=== PATIENT | male | born 1980 | race Hispanic/Latino ===

== ENCOUNTER 2017-07-05 11:33 | Emergency (ER) | payer MEDICARE, OTHER | END 2017-07-05 12:20 | disposition home or self-care (01) | LOC: EDH 11:33 | DX: S46.091A Other injury of muscle(s) and tendon(s) of the rotator cuff of right shoulder, initial encounter (principal); Z72.0 Tobacco use; W22.8XXA Striking against or struck by other objects, initial encounter; Y93.89 Activity, other specified; Y92.098 Other place in other non-institutional residence as the place of occurrence of the external cause; Y99.8 Other external cause status | CPT/HCPCS: 99281; 99282 ==

== ENCOUNTER 2020-03-25 14:22 | Emergency (ER) | payer OTHER ==
[2020-03-25 15:06] LABS: BASOPHILS % (AUTO) 0.2 % (0.0-5.0); HEMATOCRIT 48.1 % (42-54); LYMPHOCYTES % (AUTO) 25.3 % (21.0-51.0); MEAN CORPUSCULAR HEMOGLOBIN 31.8 pg (27.0-33.0); MEAN CORPUSCULAR HGB CONC 34.5 g/dL (32.0-36.0); MEAN CORPUSCULAR VOLUME 92.1 fL (79-99); MONOCYTES % (AUTO) 9.3 % (3.0-13.0); NEUTROPHILS % (AUTO) 63.9 % (40.0-77.0); PLATELET COUNT (AUTO) 178 K/uL (130-400); RED BLOOD CELL COUNT(AUTO) 5.22 MIL/uL (4.50-6.20); RED CELL DISTRIBUTION WIDTH 11.8 % (11.0-15.5); WHITE BLOOD COUNT (AUTO) 11.6 K/uL (4.8-10.8)
[2020-03-25 15:15] LABS: CREATININE 1.1 mg/dL (0.5-1.5); POTASSIUM 3.9 mmol/L (3.5-5.1)
[2020-03-25 15:17] LABS: INR 0.87 (0.85-1.15); PROTHROMBIN TIME 9.4 SEC (9.6-11.6)
[2020-03-25 15:20] LABS: ALBUMIN 3.8 g/dL (3.5-5.0); BILIRUBIN,TOTAL 0.2 mg/dL (0.2-1.0); CRP QUANTITATIVE 45.7 mg/L (0.00-9.0); TOTAL PROTEIN, SERUM 8.2 g/dL (6.0-8.3)
[2020-03-25] MEDS ORDERED: KETOROLAC TROMETHAMINE 30MG/ML ONE (15:27)
[2020-03-25] MEDS ORDERED: LIDOCAINE HCL 1% 20 ML VIAL ONE (15:27)
[2020-03-25 15:35] LABS: APPEARANCE,URINE CLEAR (CLEAR); BILIRUBIN,URINE NEGATIVE (NEGATIVE); COLOR,URINE YELLOW (YELLOW); GLUCOSE, URINE (UA) NEGATIVE (NEGATIVE); KETONES,URINE NEGATIVE (NEGATIVE); LEUKOCYTE ESTERASE ,URINE NEGATIVE (NEGATIVE); NITRATE,URINE NEGATIVE (NEGATIVE); OCCULT BLOOD,URINE NEGATIVE (NEGATIVE); PROTEIN,URINE TRACE mg/dL (NEGATIVE); UROBILINOGEN,URINE 0.2 mg/dL (0.2-1.0)
[2020-03-25 15:43] LABS: BACTERIA,URINE Rare /HPF (None Seen); MUCUS,URINE Few LPF (None Seen); SQUAMOUS EPITHELIAL CELL,UR Rare /HPF (0-2); WBC,URINE 0-1 /HPF (0-1)
[2020-03-25 16:09] LABS: ERYTHROCYTE SEDIMENTATION RATE 17 MM/HR (0-15)
[2020-03-25] MEDS ORDERED: CLINDAMYCIN 600 MG/D5% WATER 50 ML IV ONE (16:23)
== END 2020-03-25 17:18 | disposition home or self-care (01) ==
LOC: EDH 14:22
DX: L02.214 Cutaneous abscess of groin (principal); L03.314 Cellulitis of groin; E11.65 Type 2 diabetes mellitus with hyperglycemia; E86.0 Dehydration; Z72.0 Tobacco use
CPT/HCPCS: 36415; 80053; 81001; 82550; 84484; 85025; 85610; 85651; 85730; 86140; 93005; 96361; 96365; 96375; 99284; J1885; J3490

== ENCOUNTER 2020-03-26 17:18 | Emergency (ER) | payer OTHER | END 2020-03-26 18:28 | disposition home or self-care (01) | LOC: EDH 17:18 | DX: S81.802A Unspecified open wound, left lower leg, initial encounter (principal); Z48.00 Encounter for change or removal of nonsurgical wound dressing; X58.XXXA Exposure to other specified factors, initial encounter; Y93.89 Activity, other specified; Y92.89 Other specified places as the place of occurrence of the external cause; Y99.8 Other external cause status | CPT/HCPCS: 99281 ==